=== PATIENT | female | born 1990 | race Caucasian/White ===

== ENCOUNTER 2020-09-12 01:04 | Inpatient (IN) | payer OTHER ==
[2020-09-12 03:33] VITALS: BMI 28.7
[2020-09-12 03:54] LABS: BASO % 0.3 % (0-2.0); EOS % 0.6 % (0-4.5); HEMATOCRIT 31.1 % (32.4-45.2); HEMOGLOBIN 10.1 GM/dL (10.7-15.3); LYMPH % 23.5 % (8-40); MCH 24.7 pg (25.7-33.7); MCHC 32.5 g/dl (32.0-36.0); MEAN CELL VOLUME 76.1 fl (80-96); MEAN PLT VOLUME 10.3 fl (7.5-11.1); MONO % 7.6 % (3.8-10.2); PLATELET COUNT 165 10^3/uL (134-434); RBC 4.08 M/mm3 (3.60-5.2); RDW 14.8 % (11.6-15.6); WHITE BLOOD COUNT 7.3 K/mm3 (4.0-10.0)
[2020-09-12 04:02] LABS: INR 0.84 (0.83-1.09); PROTHROMBIN TIME (PATIENT) 10.4 SEC (9.7-13.0)
[2020-09-12 04:05] LABS: ACTIVATED PTT 23.3 SECONDS (25.2-36.5)
[2020-09-12 04:13] LABS: BLOOD UREA NITROGEN 11.6 mg/dL (7-18); CALCIUM 8.3 mg/dL (8.5-10.1)
[2020-09-12 04:17] LABS: CREATININE 0.6 mg/dL (0.55-1.3)
[2020-09-12] MEDS ORDERED: ELECTROLYTE-148 SOLN 1,000 ML IV SCH (04:30)
[2020-09-12] MEDS ORDERED: PROMETHAZINE HCL 25 MG/1 ML VIAL ONE (06:00)
[2020-09-12] MEDS ORDERED: BUTORPHANOL TARTRATE 2 MG/ML VIAL ONE (06:00)
[2020-09-12] MEDS ORDERED: BUTORPHANOL TARTRATE 1 MG/ML VIAL IVPUSH ONE (06:21)
[2020-09-12] MEDS ORDERED: PROMETHAZINE HCL 25 MG/1 ML VIAL IVPUSH ONE (06:21)
[2020-09-12] MEDS ORDERED: NALOXONE HCL 0.4 MG/ML VIAL IVPUSH PRN (07:28)
[2020-09-12] MEDS ORDERED: FENTANYL/BUPIVACAINE/NS/PF - PCEA - 50 ML DISP.SYRIN EP ONE (07:29)
[2020-09-12] MEDS ORDERED: FENTANYL/BUPIVACAINE/NS/PF - PCEA - 50 ML DISP.SYRIN EP SCH (07:30)
[2020-09-12] MEDS ORDERED: BUPIVACAINE HCL/PF 0.25% (2.5MG/ML) 10 ML VIAL ONE (07:37)
[2020-09-12] MEDS ORDERED: OXYTOCIN 20 UNITS in 0.9% NS 20 UNIT/1,000 ML INFUS.BAG IV ONE ×3 (11:02→16:03)
[2020-09-12] MEDS ORDERED: BENZOCAINE 20% 57 GM BOTTLE TP PRN (13:26)
[2020-09-12] MEDS ORDERED: BISACODYL 10 MG SUPP.RECT RC PRN (13:26)
[2020-09-12] MEDS ORDERED: METHYLERGONOVINE MALEATE 0.2 MG/1 ML AMP IM PRN (13:26)
[2020-09-12] MEDS ORDERED: BENZOCAINE 28 GM HEMORRHOIDAL OINTMENT TP PRN (13:26)
[2020-09-12] MEDS ORDERED: WITCH HAZEL 50% (TUCKS) 40 PAD/JAR PAD TP PRN (13:26)
[2020-09-12] MEDS ORDERED: OXYTOCIN 20 UNITS in 0.9% NS 20 UNIT/1,000 ML INFUS.BAG IV SCH (13:30)
[2020-09-12 13:39] LABS: CORD BASE EXCESS -4.4 mmol/L (0-2); CORD HCO3 22.5 mmHg (20-29); CORD PCO2 47.3 mmHg (30-78); CORD pH 7.295 (7.14-7.44)
[2020-09-12 13:42] LABS: CORD HCO3 26.7 mmHg (20-29); CORD PCO2 68.1 mmHg (30-78); CORD pH 7.212 (7.14-7.44)
[2020-09-12] MEDS ORDERED: PCA PUMP NR ONE (14:22)
[2020-09-12] MEDS: FERROUS SO4 325 MG TABLET (FP) PO SCH (16:34)
[2020-09-12] MEDS: ACETAMINOPHEN 325 MG TABLET (FP) PO PRN (16:34)
[2020-09-12] MEDS: IBUPROFEN 600 MG TABLET (FP) PO PRN (16:35)
[2020-09-13 08:45] LABS: BASO % 0.4 % (0-2.0); EOS % 0.6 % (0-4.5); HEMATOCRIT 25.5 % (32.4-45.2); HEMOGLOBIN 8.1 GM/dL (10.7-15.3); LYMPH % 21.9 % (8-40); MCH 24.4 pg (25.7-33.7); MCHC 31.7 g/dl (32.0-36.0); MEAN PLT VOLUME 10.6 fl (7.5-11.1); MONO % 5.8 % (3.8-10.2); NEUT % 71.3 % (42.8-82.8); PLATELET COUNT 141 10^3/uL (134-434); RBC 3.31 M/mm3 (3.60-5.2)
[2020-09-13] MEDS: FERROUS SO4 325 MG TABLET (FP) PO SCH ×2 (09:00→17:36)
[2020-09-13] MEDS: ACETAMINOPHEN 325 MG TABLET (FP) PO PRN (09:42)
[2020-09-13] MEDS: PRENATAL VITAMINS W/ FOLIC ACID TABLET (FP) PO SCH (09:42)
[2020-09-13] MEDS: IBUPROFEN 600 MG TABLET (FP) PO PRN (09:43)
[2020-09-13] MEDS ORDERED: SENNOSIDES/DOCUSATE COMBO (SENNA PLUS) TABLET (UD) PO PRN (22:00)
[2020-09-14 05:44] VITALS: PULSE 73
[2020-09-14] MEDS: PRENATAL VITAMINS W/ FOLIC ACID TABLET (FP) PO SCH (10:17)
[2020-09-14] MEDS: FERROUS SO4 325 MG TABLET (FP) PO SCH (10:18)
[2020-09-14 10:26] VITALS: BP 141/94; TEMP 98.5
== END 2020-09-14 10:25 | disposition home or self-care (01) | DRG 560 ==
LOC: JDEL 01:04 → JLDR 02:00 → J3W 16:20
PROVIDERS: ADMIT Obstetrics & Gynecology; ATTEND Obstetrics & Gynecology
PROC: 10E0XZZ Delivery of Products of Conception, External Approach (ICD-10-PCS; principal; 2020-09-12)
PROC: 0W8NXZZ Division of Female Perineum, External Approach (ICD-10-PCS; 2020-09-12)
DX: O34.219 Maternal care for unspecified type scar from previous cesarean delivery (principal); O42.013 Preterm premature rupture of membranes, onset of labor within 24 hours of rupture, third trimester; O24.12 Pre-existing type 2 diabetes mellitus, in childbirth; E11.9 Type 2 diabetes mellitus without complications; Z79.4 Long term (current) use of insulin; O99.02 Anemia complicating childbirth; D64.9 Anemia, unspecified; Z3A.36 36 weeks gestation of pregnancy; Z37.0 Single live birth
CPT/HCPCS: 36415; 36600; 59409; 80048; 82803; 82962; 85025; 85610; 85730; 86780; 86850; 86900; 86901; C9803; U0003; U0005